=== PATIENT | female | born 1945 | race Caucasian/White ===

== ENCOUNTER → 2017-11-28 | Outpatient (CLI) | payer MEDICAID, OTHER | LOC: FIMAGING 13:30 | PROVIDERS: ATTEND Family Medicine | DX: Z12.31 Encounter for screening mammogram for malignant neoplasm of breast (principal) ==

== ENCOUNTER → 2018-05-29 | Outpatient (CLI) | payer OTHER, MEDICAID | LOC: FIMAGING 12:37 | PROVIDERS: ATTEND Family Medicine | DX: Z13.820 Encounter for screening for osteoporosis (principal); M85.89 Other specified disorders of bone density and structure, multiple sites; E28.39 Other primary ovarian failure; R91.1 Solitary pulmonary nodule; I51.7 Cardiomegaly; K82.8 Other specified diseases of gallbladder; Z78.0 Asymptomatic menopausal state ==